=== PATIENT | male | born 1970 | race Caucasian/White ===

== ENCOUNTER 2016-11-18 10:09 | Emergency (ER) | payer BC ==
[2016-11-23] MEDS ORDERED: NORCO 7.5-3251 EACH PO (08:49)
[2016-11-23] MEDS ORDERED: PERCOCET 7.5-31 EACH PO (17:19)
[2016-11-23] MEDS ORDERED: LOVENOX40 MG/0.4 SQ (17:21)
[2016-11-24] MEDS ORDERED: LOVENOX SY40 MG/0.4 SQ (20:33)
[2016-11-24] MEDS ORDERED: PERCOCET 7.5-31 EACH PO (20:33)
[2016-11-26] MEDS ORDERED: ELIQUIS5 MG PO (14:25)
[2016-11-26] MEDS ORDERED: COLACE 100MG C100 MG PO (14:28)
== END 2016-11-18 13:35 | disposition home or self-care (01) ==
LOC: ER1 10:09
DX: S82.431A Displaced oblique fracture of shaft of right fibula, initial encounter for closed fracture (principal); W01.0XXA Fall on same level from slipping, tripping and stumbling without subsequent striking against object, initial encounter; X50.1XXA Overexertion from prolonged static or awkward postures, initial encounter; Y93.01 Activity, walking, marching and hiking; Y92.828 Other wilderness area as the place of occurrence of the external cause
CPT/HCPCS: 29515; 73562; 73610; 73630; 96374; 96375; 99283; J2270; J2405